=== PATIENT | female | born 1945 | race Caucasian/White ===

== ENCOUNTER → 2017-01-20 | Outpatient (CLI) | payer OTHER ==
[~2017-01-20] MED LIST: ACID CONTROL150 MG PO; ADULT LOW DOSE81 MG PO; ALDACTONE50 MG PO; ALLEGRA ALLERG180 MG PO; BENICAR40 MG PO; CALCIUM 600 +1 EAC1 PO; CARDIZEM CD 18180 M3 PO; CENTRUM TABLET1 TAB PO; CLOBETASOL PROP50 M1 TOP; COLACE100 MG PO; COUMADIN 2.5MG2.5 M1 PO; COZAAR 50 MG TA50 MG PO; COZAAR100 MG PO; FENOFIBRATE134 MG PO; FERROUS GLUCON324 M2 PO; FERROUS GLUCON325 M4 PO; FISH OIL 1,0001 EAC5 PO; FLECAINIDE ACE100 MG PO; FLECAINIDE ACE150 MG PO; FLECAINIDE ACET50 M2 PO; FUROSEMIDE 40 M40 M1 PO; IRON OR; IRON325 PO; K-DUR 20 MEQ T20 MEQ PO; K-DUR10 MEQ PO; LASIX 20 MG TAB20 MG PO; LASIX 40 MG TAB40 M1 GT; LASIX 40 MG TAB40 M1 PO; LIPITOR10 MG PO; LORTAB 5 MG/5001 TA1; LOSARTAN POTAS100 MG PO; MELOXICAM7.5 MG PO; MOBIC7.5 MG PO; MULTIVITAMINS1 EAC7 PO; OMEPRAZOLE 20 M20 MG PO; OMEPRAZOLE20 MG PO; PACERONE 200 M200 M1 PO; PAXIL 20 MG TAB20 M1 PO; PEPCID AC20 M1 PO; PLAVIX 75 MG TA75 MG PO; PRIMIDONE50 MG PO; TOPROL XL100 MG PO; VITAMIN D-32000 UNIT PO; VITAMIN D31000 UNIT PO; VITAMIN D400 UNI1 PO; ZOCOR 10 MG TAB10 M1 PO; ZOCOR 20 MG TAB20 M1 PO
== END ==
LOC: RAD 01:08
DX: Z12.31 Encounter for screening mammogram for malignant neoplasm of breast (principal)

== ENCOUNTER → 2017-05-04 | Outpatient (CLI) | payer OTHER ==
[~2017-05-04] VITALS: Ht 162.6 cm; Wt 79.7 kg
--- NOTE | ~2017-05-04 | HPC ---
[facility] [address] [place] [address] PAIN MANAGEMENT CONSULTATION Name: MARSHA NAIK Room #: REG JOANNE Chinmay.#: [id number] Admission: 05/04/17 Attend Phys: Zachery Ibarra DO Discharge: Date of : 47 Report #: [id number] THIS REPORT FOR: //name// CC: Zachery Ward MD DATE OF SERVICE: 05/04/2017 REFERRAL PHYSICIAN: Ace Ward M.D. CHIEF COMPLAINT: Low back pain, bilateral lower extremity pain and paresthesias. HISTORY OF PRESENT ILLNESS: As you know, the patient is a 71-year-old female who has returned today in followup visit with recurrent low back pain, bilateral lower extremity pain with paresthesias. The patient indicates her pain is sharp, stabbing, tender, and numbness and tingling and constant in sensation, places current pain score 6/10, exacerbated with standing, walking, improves with lying down. She returns today in followup visit requesting epidural injection under fluoroscopic guidance. She has discontinued her Coumadin in preparation for today's procedure. Her INR today 1.2. She is in preparation for epidural injection under fluoroscopic guidance per the request of her primary care physician. ALLERGIES: CAFFEINE, LISINOPRIL, CODEINE. CURRENT MEDICATIONS: Furosemide, fexofenadine, losartan, diltiazem, atorvastatin, cholecalciferol, Meloxicam, Paroxetine, omega 3 fish oil, warfarin, omeprazole, ferrous sulfate, docusate sodium and aspirin. SOCIAL HISTORY: The patient denies tobacco, alcohol, IV or illicit drug use. She is unaccompanied today. IMAGING: No new imaging available. PHYSICAL EXAMINATION: VITAL SIGNS: Blood pressure 106/57, pulse 62, respiratory rate 16, unlabored. The patient is 100% on room air, height 5 feet 4 inches tall, weight 175.8 pounds, BMI calculated 30.2. GENERAL: Well developed, well nourished, well hydrated 71-year-old female appearing her stated age. She is placing current pain score at 6/10. HEENT: Normocephalic, atraumatic. Pupils equal, round, reactive to light. Extraocular muscles are intact. Sclerae nonicteric, without injection. EXTREMITIES: Show no clubbing, no cyanosis, no edema. MUSCULOSKELETAL: Seated straight leg raising negative. Supine straight leg [address] [address] PAIN MANAGEMENT CONSULTATION Name: MARSHA NAIK [facility] Room #: REG [facility].#: [id number] Admission: 05/04/17 Attend Phys: Zachery Ibarra DO Discharge: Date of : 47 Report #: [id number] raising positive. Raymond's test negative. Modified Gaenslen's positive for axial low back pain. Ankle clonus negative. Babinski is negative. ASSESSMENT: 1. Symptomatic lumbar radiculopathy. 2. Lumbosacral spondylosis with radiculopathy. 3. Displacement of a lumbar intervertebral disk with radiculopathy. 4. Lumbar degeneration. 5. Chronic intractable pain. PLAN: 1. The patient returns today in followup visit having discontinued the Coumadin in preparation for today's procedure. The patient has been offered Coumadin for approximately 6 days. Her INR today 1.2. She has come off the medication per the request of her primary care physician to undergo lumbar epidural injection under fluoroscopic guidance. The patient has been advised the risks and benefits of a lumbar epidural injection. These risks include but are not necessarily limited to bleeding, bruising, infection, worsening pain, no relief of pain, also risk of temporary or permanent muscle weakness, temporary or permanent nerve damage, possible paralysis and . The patient states understood and wished to proceed. 2. No medication changes were made at today's visit. The patient will restart her Coumadin today and continue the Coumadin until our next visit. 3. We wish to thank Dr. Ward for the re-referral of this patient to our clinic. We will keep you apprised of her response to her treatment for lumbar radicular symptoms. DESCRIPTION OF PROCEDURE: L4-L5 lumbar epidural steroid injection under fluoroscopic guidance. This is the first procedure of the third series that the patient is undergoing. After obtaining written consent, the patient was taken back to the fluoroscopy suite, placed in a prone position with pillow under the abdomen to decrease lumbar lordosis. The skin overlying the lumbosacral area was then prepped and draped in aseptic fashion. The L4-L5 vertebral interspace was then identified by AP fluoroscopy. The skin and subcutaneous tissue overlying the target site of injection was anesthetized with 3 mL 1% lidocaine. A 20-gauge 3-1/2 inch Tuohy needle was then advanced under fluoroscopic guidance towards the epidural space using a paramedian approach. The epidural space was identified using loss of resistance to air technique. After negative aspiration for heme or cerebrospinal fluid, a total of 1 mL of Omnipaque was injected. A lumbar epidurogram was confirmed using both AP and lateral fluoroscopy. After negative aspiration for heme or cerebrospinal fluid, 5 mL of a solution containing 2 mL 40 mg per mL, 80 mg total triamcinolone, 3 mL of lidocaine 1% [address] [address] PAIN MANAGEMENT CONSULTATION Name: MARSHA NAIK Room #: [facility]#: [id number] Admission: 05/04/17 Attend Phys: Zachery Ibarra DO Discharge: Date of : 47 Report #: [id number] was injected in increments. Contrast spread was noted post epidural space. The needle was then retracted approximately half way and needle tract flushed with 1 mL of 1% lidocaine. Needle was then removed. There were no apparent sensory or motor deficits in the lower extremity following the procedure. A sterile bandage was placed over the injection site. The heart rate, pulse, oximetry and blood pressure were continuously monitored after the procedure. There were no apparent complications. The patient tolerated the procedure well and was carefully escorted to the recovery room in stable condition. There were no apparent complications. After meeting discharge criteria, the patient was then discharged home. By: 0823 1210 Zachery Ibarra DO /nt
[2017-05-04 09:28] VITALS: BP 106/57
== END | disposition home or self-care (01) ==
LOC: PAIN 07:09
DX: M51.16 Intervertebral disc disorders with radiculopathy, lumbar region (principal); M47.27 Other spondylosis with radiculopathy, lumbosacral region; G89.29 Other chronic pain; Z88.8 Allergy status to other drugs, medicaments and biological substances; Z79.899 Other long term (current) drug therapy; Z98.890 Other specified postprocedural states; Z79.01 Long term (current) use of anticoagulants; Z87.891 Personal history of nicotine dependence; Z79.82 Long term (current) use of aspirin

== ENCOUNTER → 2018-01-21 | Outpatient (CLI) | payer OTHER | LOC: RAD 02:01 | DX: Z12.31 Encounter for screening mammogram for malignant neoplasm of breast (principal); M85.89 Other specified disorders of bone density and structure, multiple sites; I70.8 Atherosclerosis of other arteries; R09.89 Other specified symptoms and signs involving the circulatory and respiratory systems; I48.91 Unspecified atrial fibrillation; Z78.0 Asymptomatic menopausal state ==

== ENCOUNTER → 2018-08-17 | Outpatient (CLI) | payer OTHER ==
[~2018-08-17] VITALS: Ht 162.6 cm; Wt 80.7 kg
[~2018-08-17] MED LIST changes: +CALCIUM 500 +1 EAC5 PO; +CENTRUM SILVER1 EAC4 PO; +FLAREX5 ML OPHTHALMIC; +METOPROLOL SUCC50 MG PO
--- NOTE | ~2018-08-17 | P ---
[facility] [place] [address] PROCEDURE REPORT Name: GUMAROMARSHA Room #: REG JOANNE Martinez#: [id number] Admission: 08/17/18 Attend Phys: Harjeet Burt Discharge: Date of : 47 Report #: [id number] THIS REPORT FOR: //name// CC: Harjeet Ward MD DATE OF SERVICE: 08/17/2018 PROCEDURE PERFORMED: Colonoscopy with polypectomy. HISTORY OF PRESENT ILLNESS: The patient is a 72-year-old female with recent history of Hemoccult positive stool. She denies any obvious bright red blood per rectum or melena. She is on Coumadin, aspirin and meloxicam on a regular basis. She has a history of polyps 4 years ago that were removed by my partner, Dr. Buck. She denies any abdominal pain. Upper endoscopy was just performed showing mild diffuse gastritis, no evidence of bleeding or ulcers. The patient is taking a daily PPI therapy. Plan is for colonoscopy next today. DESCRIPTION OF PROCEDURE: The risks and benefits of the procedure were explained to the patient, those risks including but not limited to bleeding, perforation, the risk of sedation. She understood these risks and gave informed consent. Sedation was given using propofol per Anesthesia. Next, a digital rectal exam was performed, which showed some lichen sclerosus changes of the skin perianally as well as small external hemorrhoids, nonbleeding, otherwise normal. Next, using a standard Olympus colonoscope, the scope was placed in the patient's anus and advanced under direct vision to the cecum. The overall prep was good. The cecum and ileocecal valve were normal in appearance. Ascending, transverse, descending and sigmoid colon were normal. In the rectum, there was a 6-mm partially pedunculated polyp. This was mildly inflamed, but no active bleeding. This was removed by snare cautery. On retroflexion, small nonbleeding internal hemorrhoids noted. The scope was then withdrawn and the procedure terminated. The patient tolerated the procedure well. IMPRESSION: 1. Rectal polyp. 2. Internal and external hemorrhoids, nonbleeding. 3. Otherwise, normal colonoscopy. RECOMMENDATIONS: 1. Await biopsy results. 2. Hemoccult positive stool may be secondary to hemorrhoids or rectal polyp, which has now been removed. The patient denies a history of anemia. At this point, would observe and monitor. [address] [address] PROCEDURE REPORT Name: MARSHA NAIK GEMINI Room #: REG JOANNE Martinez#: [id number] Admission: 08/17/18 Attend Phys: Harjeet Burt Discharge: Date of : 47 Report #: [id number] Thank you for allowing me to participate in her care. By: 0917 1539 Harjeet Tiwari MD /nt
--- NOTE | ~2018-08-17 | P ---
[facility] [place] [address] PROCEDURE REPORT Name: MARSHA NAIK Room #: REG JOANNE Martinez#: [id number] Admission: 08/17/18 Attend Phys: Harjeet Burt Discharge: Date of : 47 Report #: [id number] THIS REPORT FOR: //name// CC: Harjeet Ward MD DATE OF SERVICE: 08/17/2018 PROCEDURE PERFORMED: Upper endoscopy with biopsies. HISTORY OF PRESENT ILLNESS: The patient is a 72-year-old female with recent Hemoccult positive stool. She denies any obvious bright red blood per rectum or melena. No abdominal pain. She takes omeprazole on a daily basis for reflux. She denies any dysphagia. She also is on meloxicam, aspirin, and Coumadin, which has been held the last few days. Plan is for EGD and colonoscopy today. DESCRIPTION OF PROCEDURE: The risks and benefits of the procedure were explained to the patient, those risks including but not limited to bleeding, perforation, and the risk of sedation. She understood these risks and gave informed consent. Sedation was given using propofol per Anesthesia. Next, using a standard Olympus upper endoscope, the scope was placed in the patient's mouth and advanced under direct vision through the esophagus, stomach and into the second portion of the duodenum. The larynx was normal in appearance. The esophagus was normal throughout. The GE junction was normal. Overall, there was a mild diffuse gastritis in the body and antrum. No ulcerations or erosions. No bleeding was noted. Biopsies were obtained to rule out H. pylori. The pylorus was normal and patent. The duodenal bulb, first and second portion were normal. Biopsies were obtained to rule out the possibility of celiac sprue. The scope was then withdrawn and the procedure terminated. The patient tolerated the procedure well. IMPRESSION: 1. Diffuse gastritis. No evidence of bleeding. 2. Otherwise, normal upper endoscopy. RECOMMENDATIONS: 1. Await biopsy results. 2. Continue PPI therapy. 3. We will proceed with colonoscopy next today. [address] [address] PROCEDURE REPORT Name: MARSHA NAIK GEMINI Room #: REG JOANNE Martinez#: [id number] Admission: 08/17/18 Attend Phys: Harjeet Burt Discharge: Date of : 47 Report #: [id number] Thank you for allowing me to participate in her care. By: 0851 1445 Harjeet Tiwari MD /nt
[2018-08-17 08:30] LABS: INR 1.6; PROTIME 16.1 Seconds (9.3-11.4)
== END | disposition home or self-care (01) ==
LOC: GI 07:09
PROVIDERS: Specialist
DX: K62.1 Rectal polyp (principal); K29.70 Gastritis, unspecified, without bleeding; K64.8 Other hemorrhoids; K64.4 Residual hemorrhoidal skin tags; I10 Essential (primary) hypertension; I25.2 Old myocardial infarction; G47.33 Obstructive sleep apnea (adult) (pediatric); D64.9 Anemia, unspecified; K21.9 Gastro-esophageal reflux disease without esophagitis; F32.9 Major depressive disorder, single episode, unspecified; F41.9 Anxiety disorder, unspecified; Z86.010 Personal history of colon polyps; Z79.01 Long term (current) use of anticoagulants; Z90.49 Acquired absence of other specified parts of digestive tract; Z90.710 Acquired absence of both cervix and uterus; Z85.828 Personal history of other malignant neoplasm of skin; Z98.890 Other specified postprocedural states; Z98.41 Cataract extraction status, right eye; Z87.891 Personal history of nicotine dependence; Z95.5 Presence of coronary angioplasty implant and graft; Z98.42 Cataract extraction status, left eye; Z79.899 Other long term (current) drug therapy; Z86.73 Personal history of transient ischemic attack (TIA), and cerebral infarction without residual deficits; Z88.8 Allergy status to other drugs, medicaments and biological substances; Z88.6 Allergy status to analgesic agent; Z79.82 Long term (current) use of aspirin
CPT/HCPCS: 62110; 62900

== ENCOUNTER → 2019-01-30 | Outpatient (CLI) | payer OTHER | LOC: RAD 04:57 | DX: Z12.31 Encounter for screening mammogram for malignant neoplasm of breast (principal) ==

== ENCOUNTER → 2019-02-01 | Outpatient (CLI) | payer OTHER | LOC: RAD 13:06 | DX: N60.02 Solitary cyst of left breast (principal); R92.1 Mammographic calcification found on diagnostic imaging of breast ==

== ENCOUNTER → 2019-03-06 | Outpatient (CLI) | payer OTHER | LOC: MRI 14:36 | DX: M47.817 Spondylosis without myelopathy or radiculopathy, lumbosacral region (principal); M51.27 Other intervertebral disc displacement, lumbosacral region; R07.81 Pleurodynia; M48.07 Spinal stenosis, lumbosacral region; M51.36 Other intervertebral disc degeneration, lumbar region ==

== ENCOUNTER → 2019-12-06 | Outpatient (CLI) | payer OTHER ==
--- NOTE | 2019-12-06 11:52 | 2DMMODE ---
[facility] [place] [address] 2 D/M-MODE ECHOCARDIOGRAM Name: GUMAROMARSHA GEMINI [facility] [id number] Admission: 12/06/19 Attend Phys: Elvis Pickard MD Discharge: Date of : 47 Report #: [id number] THIS REPORT FOR: cc: Ace Ward,Gael Acosta MD ~ APPROVED REPORT Study performed: 12/06/2019 10:16:30 EXAM: Comprehensive 2D, Doppler, and color-flow Echocardiogram Patient Location: Out-Patient Status: routine BSA: 1.91 HR: 68 bpm BP: 140/74 mmHg Rhythm: Atrial Fibrillation Other Information Study Quality: Good Indications Edema, sleep apnea. Hx: Afib, CAD with stent. 2D Dimensions RVDd: 37.81 mm IVSd: 9.00 (7-11mm) LVOT Diam: 20.37 (18-24mm) LVDd: 51.00 mm PWd: 9.00 (7-11mm) LVDs: 34.68 (25-40mm) Aortic Root: 28.84 mm Volumes Left Atrial Volume (Systole) Single Plane 4CH: 80.75 mL Single Plane 2CH: 87.79 mL LA ESV Index: 47.00 mL/m2 Aortic Valve AoV Peak Tito.: 1.17 m/s AO Peak Gr.: 5.51 mmHg LVOT Max P.57 mmHg LVOT Max V: 0.95 m/s LINDA Vmax: 2.62 cm2 [facility] [address] [place] [address] 2 D/M-MODE ECHOCARDIOGRAM Name: MARSHA NAIK Room #: REG Juan#: [id number] Admission: 12/06/19 Attend Phys: Elvis Pickard MD Discharge: Date of : 47 Report #: [id number] Mitral Valve MV Decel. Time: 165.18 ms MV E Max Tito.: 1.10 m/s Pulmonary Valve PV Peak Tito.: 0.81 m/s PV Peak Gr.: 2.60 mmHg Tricuspid Valve TR Peak Tito.: 2.68 m/s RAP Estimate: 10.00 mmHg TR Peak Gr.: 29.00 mmHg PA Pressure: 39.00 mmHg Left Ventricle The left ventricle is normal size. Moderate basal septal hypertrophy is present. Left ventricular systolic function is low normal. LVEF is 50%. This study is not technically sufficient to allow evaluation of the LV diastolic function due to atrial fibrillation. Right Ventricle The right ventricle is normal size. The right ventricular systolic function is normal. Atria Left atrium is severely dilated. Right atrium is mildly dilated. Aortic Valve The aortic valve is normal in structure. Leaflets are mildly sclerotic. Mild aortic regurgitation. There is no aortic valvular stenosis. Mitral Valve Mitral valve leaflets are mildly thickened. Mild mitral annular calcification. Moderate mitral regurgitation. No evidence of mitral valve stenosis. Tricuspid Valve The tricuspid valve is normal in structure. Moderate tricuspid regurgitation. Estimated PAP is 40mmHg. Pulmonic Valve The pulmonary valve is normal in structure. Trace pulmonic regurgitation. Great Vessels [facility] [address] [place] [address] 2 D/M-MODE ECHOCARDIOGRAM Name: STANFLORIDAMARSHA [facility] Room #: REG CL [facility].#: [id number] Admission: 12/06/19 Attend Phys: Elvis Pickard MD Discharge: Date of : 47 Report #: [id number] The aortic root is normal in size. Ascending aorta is not well visualized. IVC is normal in size and collapses <50% with inspiration. Pericardium There is no pericardial effusion. <Conclusion> The left ventricle is normal size. LVEF is 50%. The aortic valve is normal in structure. Leaflets are mildly sclerotic. Mild aortic regurgitation. Mitral valve leaflets are mildly thickened. Mild mitral annular calcification. Moderate mitral regurgitation. The tricuspid valve is normal in structure. Moderate tricuspid regurgitation. Estimated PAP is 40mmHg. The pulmonary valve is normal in structure. Trace pulmonic regurgitation. There is no pericardial effusion. <ELECTRONICALLY SIGNED> By: Gael Levy MD 12/06/19 1151 1151 1151 Gael Levy MD /INF
== END ==
LOC: CV 09:46
DX: I08.3 Combined rheumatic disorders of mitral, aortic and tricuspid valves (principal); G47.33 Obstructive sleep apnea (adult) (pediatric); I48.91 Unspecified atrial fibrillation

== ENCOUNTER → 2020-05-02 | Outpatient (CLI) | payer OTHER | LOC: BC 09:03 | PROVIDERS: ATTEND Neuromusculoskeletal Medicine & OMM | DX: Z12.31 Encounter for screening mammogram for malignant neoplasm of breast (principal) ==

== ENCOUNTER → 2021-07-02 | Outpatient (CLI) | payer OTHER | LOC: BC 08:29 | PROVIDERS: ATTEND Neuromusculoskeletal Medicine & OMM | DX: Z12.31 Encounter for screening mammogram for malignant neoplasm of breast (principal) ==

== ENCOUNTER → 2021-07-03 | Outpatient (CLI) | payer OTHER ==
--- NOTE | 2021-07-04 18:10 | PATH ---
[facility] [address] [place] [address] PATHOLOGY RPT PROCEDURE Name: GUMAROETHEL Room #: REG JOANNE M.R.#: [id number] Admission: 07/03/21 Date of : 47 Discharge: Report #: [id number] Path Case #: [id number] [facility] Accession Number: [id number] . 01 Material submitted: . breast - RIGHT BREAST CALCIFICATIONS. Modifiers: right . 01 Clinical history: . US/BREAST/ UNI/ RAD/ MAMM/BX/R BR CALCS/NOD COLLECTED 2:08PM, FORMALIN 2:10PM . 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 - Negative for hyperplasia or malignancy. (IUV:martina; 07/04/2021) QMS 07/04/2021 1351 Local . 02 Electronically signed: . Jacklyn Cannon MD, Pathologist NPI- [id number] . 01 Gross description: . The specimen is received in formalin, labeled "Ethel Naik" with no designation on the specimen container. The specimen is labeled per the requisition "right breast calcifications, upper outer". It consists of multiple renner-yellow, irregular fibrofatty soft tissue segments received in a cassette (2.3 x 2.0 x 0.3 cm in aggregate) and on Dustin (3.0 x 0.0 x 0.5 cm in aggregate). The specimen is entirely submitted as follows: A1-A3: Tissue from cassette A4-A6: Tissue on Dustin Time removed from patient: 1408 on 07/03/2021 Time placed in formalin: 1410 on 07/03/2021 Time removed from formalin: 2340 on 07/03/2021 Total time formalin: 9 hours 30 minutes (MRF; 07/03/2021) MFE/MFE 07/03/2021 2125 Local . 02 Pathologist provided ICD-10: N60.31, D24.1 . 02 CPT . 367475 Specimen Comment: A courtesy copy of this report has been sent to [phone] Specimen Comment: [phone] Specimen Comment: Report sent to / [place] [address] PATHOLOGY RPT PROCEDURE Name: YOLA NAIKRICIA GEMINI Room #: REG CLEly Martinez#: [id number] Admission: 07/03/21 Date of : 47 Discharge: Report #: [id number] Path Case #: [id number] [facility]: [facility] [address], [place] [id number] MD Mark Chavez MD Phone: [phone] Performed at: [address] [id number] MD Jacklyn Cannon MD Phone: [phone]
== END | disposition home or self-care (01) ==
LOC: RAD 12:38 → ULTRA 12:38
PROVIDERS: ATTEND Neuromusculoskeletal Medicine & OMM
DX: R92.1 Mammographic calcification found on diagnostic imaging of breast (principal); D24.1 Benign neoplasm of right breast; N60.31 Fibrosclerosis of right breast; Z98.890 Other specified postprocedural states; Z79.899 Other long term (current) drug therapy; Z79.82 Long term (current) use of aspirin; Z88.8 Allergy status to other drugs, medicaments and biological substances

== ENCOUNTER 2021-08-07 16:09 | Emergency (ER) | payer OTHER ==
[~2021-08-07] VITALS: Ht 165.1 cm; Wt 88.9 kg
[2021-08-07 16:53] LABS: ABSOLUTE NEUTROPHILS 3.3 thou/uL (1.4-8.2); BASOPHILS 1.2 % (0.0-2.0); EOSINOPHILS 2.4 % (0.0-3.0); HEMATOCRIT 44.5 % (37.0-47.0); HEMOGLOBIN 14.7 gm/dL (12.0-15.0); LYMPHOCYTES 18.9 % (24.0-44.0); MCH 29.6 pg (26.0-34.0); MCV 89.5 fL (80.0-100.0); MONOCYTES 7.3 % (1.0-8.0); PLATELET COUNT 151 thou/uL (150-400); POLYS 70.2 % (36.0-66.0); RBC 4.97 mil/uL (4.20-5.00); RDW 14.5 % (10.5-14.5); WBC 4.7 thou/uL (4.0-11.0)
[2021-08-07 17:01] LABS: CALCIUM 8.6 mg/dL (8.5-10.1); CREATININE 0.7 mg/dL (0.6-1.0); POTASSIUM 3.4 mmol/L (3.5-5.1)
[2021-08-07 17:09] LABS: MAGNESIUM 1.9 mg/dL (1.8-2.4); TOTAL BILIRUBIN 0.5 mg/dL (0.2-1.0); TOTAL PROTEIN 6.6 g/dL (6.4-8.2)
[2021-08-07 17:11] LABS: APTT 35.2 Seconds (24.5-32.8); INR 2.61; PROTIME 27.2 Seconds (10.5-12.1)
[2021-08-07] MEDS ORDERED: JANTOVEN4 MG PO (17:39)
[2021-08-07 19:40] VITALS: BP 150/74
[2021-08-07 20:32] LABS: ALBUMIN 3.8 g/dL (3.4-5.0)
--- NOTE | 2021-08-08 07:19 | EKG ---
[place] [address] [email or web address] [place] [address] ELECTROCARDIOGRAM REPORT Name: MARSHA NAIK Room #: [facility] [id number] Admission: 08/07/21 Attend Phys: Discharge: 08/07/21 Date of : 47 Report #: [id number] [facility] ED Test Date: 2021-08-07 Test Time: 17:00:55 Pat Name: MARSHA NAIK Department: Room: Gender: F Community Administrator: ROBERT : 1945 Requested By: Maycol Tanner Order Number: [id number] MD: José Modi Measurements Intervals [place] Rate: 75 P: CA: QRS: -29 QRSD: 104 T: 64 QT: 402 QTc: 449 Interpretive Statements Atrial fibrillation Ventricular premature complex Abnormal R-wave progression, late transition Inferior infarct, old Compared to ECG 12/28/2013 10:33:20 Ventricular premature complex(es) now present Myocardial infarct finding now present Sinus rhythm no longer present First degree AV block no longer present T-wave abnormality no longer present Prolonged QT interval no longer present Electronically Signed On 08-08-2021 7:19:40 CDT by José Modi [email or web address] <ELECTRONICALLY SIGNED> By: José Modi MD, FAC 08/08/21 0719 99 99 José Modi MD, [facility] /EPI
== END 2021-08-07 19:40 | disposition home or self-care (01) ==
LOC: ER 16:09
PROVIDERS: Emergency Medicine
DX: R51.9 Headache, unspecified (principal); I48.91 Unspecified atrial fibrillation; K21.9 Gastro-esophageal reflux disease without esophagitis; I10 Essential (primary) hypertension; F32.9 Major depressive disorder, single episode, unspecified; Z90.710 Acquired absence of both cervix and uterus; Z90.89 Acquired absence of other organs; Z98.890 Other specified postprocedural states; Z79.891 Long term (current) use of opiate analgesic; Z79.1 Long term (current) use of non-steroidal anti-inflammatories (NSAID); Z79.82 Long term (current) use of aspirin; Z88.5 Allergy status to narcotic agent; Z88.7 Allergy status to serum and vaccine; Z88.8 Allergy status to other drugs, medicaments and biological substances; Z88.6 Allergy status to analgesic agent; Z91.041 Radiographic dye allergy status